=== PATIENT | female | born 1995 | race Caucasian/White ===

== ENCOUNTER 2022-02-11 05:03 | Inpatient (IN) ==
[2022-02-11] MEDS ORDERED: LACTATED RINGER'S 1,000 ML IV PRN (05:47)
[2022-02-11] MEDS ORDERED: OXYTOCIN 30 UNITS/500 ML BAG IV PRN (05:47)
--- NOTE | 2022-02-11 06:18 | Labor Progress Brief Note ---
Date of Service February 11, 2022 Subjective Patient arrived via ER with c/o ctx. Tearful when I enter room, unable to provide much history, waiting for IV placement team. Denies LOF, VB. Good FM. Assessment & Plan (1) Normal labor: Plan: Admit in labor, epidural as soon as able per patient request. A1GDM noted, Rh pos, GBS neg. Physical Exam Genitourinary: Per RN exam 5cm/75/-2 FHT Cat 1 [place] Q2m Results & Data ([facility]) Vital Signs (Past 12 Hours) Vital Signs Temp Pulse Resp BP 02/11/22 05:23 97 H 134/81 02/11/22 05:17 98.2 F 97 H 16 134/81 Coding Level of Care Code None Diagnoses Normal labor O80; Z37.9
[2022-02-11 06:33] LABS: Hematocrit (blood only) 38.6 % (37-47); Hemoglobin 12.7 g/dL (12.0-16.0); Mean Corpuscular Hemoglobin 27.8 pg (25-34); Mean Corpuscular Volume 84.5 fL (80-100); Mean Platelet Volume 10.3 fL (7.4-10.4); Platelet Count 262 K/uL (130-400); RDW Coefficient of Variation 13.8 % (11.5-14.5); RDW Standard Deviation 42.3 fL (36.4-46.3); Red Blood Count 4.57 M/uL (4.2-5.4); White Blood Count 11.26 K/uL (4.8-10.8)
[2022-02-11 06:37] LABS: Mean Corpuscular Hgb Conc 32.9 g/dL (32-36)
[2022-02-11] MEDS ORDERED: oxyCODONE/ACETAMINOPHEN 5mg/325mg TAB PO PRN (07:56)
[2022-02-11] MEDS ORDERED: BENZOCAINE 20% AER SPR 82.5 GM CAN EXT PRN (07:56)
[2022-02-11] MEDS ORDERED: ACETAMINOPHEN 325 MG TAB PO PRN (07:56)
[2022-02-11] MEDS ORDERED: DIPHTHERIA/TETANUS/PERTUSSIS 0.5 ML SYR/VIAL IM ONE (07:56)
[2022-02-11] MEDS ORDERED: HYDROCORTISONE ACETATE 25 MG SUPP PR PRN (07:56)
[2022-02-11] MEDS: IBUPROFEN 600 MG TAB PO PRN ×3 (09:04→21:27)
[2022-02-11] MEDS: PRENATAL VITAMIN 1 TAB PO SCH (11:22)
[2022-02-11] MEDS: DOCUSATE SODIUM 100 MG CAP PO SCH ×2 (11:22→21:27)
--- NOTE | 2022-02-11 19:38 | Delivery Summary ---
Vaginal Delivery Summary Date of Service February 11, 2022 Vaginal Delivery Summary Patient arrived in active labor she requested an epidural however she progressed to quickly progressed to fully dilated and delivered a baby in occiput anterior position. Mouth and then nares were suctioned fluid was clear gentle traction live vigorous female cord clamped cord blood obtained placenta removed with gentle traction IV Pitocin started there was no tearing estimated blood loss 150 mL sponge and instrument counts correct
[2022-02-12] MEDS: IBUPROFEN 600 MG TAB PO PRN ×2 (01:51→06:35)
--- NOTE | 2022-02-12 06:16 | Obstetrical Progress Note ---
Date of Service February 12, 2022 Assessment & Plan (1) Encounter for care and examination after delivery: Plan: Patient is a 27-year-old now G2, P2 female who delivered via spontaneous vaginal delivery at 38 weeks gestation, day 1 -Continue routine care, Discharge today 24 hours after delivery -O+, antibody negative, rubella immune, GBS negative -Encourage breast-feeding -Encouraged ambulation -Tylenol and ibuprofen as needed for pain control -Follow-up OB appointment in [address] Contreras Admission and Anticipated Discharge Date Admission Date: February 11, 2022 Supervising Physician Co-Signing Physician Notes Resident Physician Supervision Note: I was present with Dr. Bangura during the history and exam. I discussed the case with the resident and agree with the findings and plan as documented in the note. Any exceptions or clarifications are listed here: [None] Documented By: Damari Contreras MD, FACOG Subjective Patient is a 27-year-old now G2, P2 female who delivered via spontaneous vaginal delivery at 38 weeks gestation, day 1. Patient overall doing well. Pain control at a 4 out of 10. Reports ambulating well and voiding. Able to tolerate eating and drinking. Denies chest pain, shortness of breath, nausea, vomiting, calf pain, and headaches. Breast-feeding without difficulty. Patient would like to go home if able today. Otherwise no complaints today. Review of Systems Review of Systems: All systems reviewed & are unremarkable except as noted in HPI & below Physical Exam Constitutional: WD/WN, vitals as above Eyes: + anicteric sclerae Neck: trachea midline, no thyromegaly Respiratory: normal respiratory effort, lungs clear to auscultation Cardiovascular: RRR, no murmur, no edema Gastrointestinal (Abdomen): normal bowel sounds, soft, nontender, no hepatosplenomegaly Musculoskeletal: Head/Neck/Chest: normocephalic and head atraumatic Skin: no rashes, warm and dry Neurologic: moves all extremities Psychiatric: A+Ox3, euthymic affect Genitourinary: Uterus palpated 2 cm below the umbilicus, firm. Results & Data ([facility]) Vital Signs (Past 12 Hours) Vital Signs Temp Pulse Resp BP Pulse Ox 02/12/22 04:15 36.6 C 73 16 113/65 96 02/11/22 23:45 36.5 C 69 16 113/66 100 02/11/22 19:20 36.7 C 84 18 133/79 98
[2022-02-12] MEDS: PRENATAL VITAMIN 1 TAB PO SCH (07:53)
[2022-02-12] MEDS: DOCUSATE SODIUM 100 MG CAP PO SCH (07:53)
[2022-02-12 09:27] LABS: Hematocrit (blood only) 34.9 % (37-47); Hemoglobin 11.8 g/dL (12.0-16.0); Mean Corpuscular Hemoglobin 28.9 pg (25-34); Mean Corpuscular Hgb Conc 33.8 g/dL (32-36); Mean Corpuscular Volume 85.3 fL (80-100); Mean Platelet Volume 10.4 fL (7.4-10.4); Platelet Count 256 K/uL (130-400); RDW Standard Deviation 43.3 fL (36.4-46.3); Red Blood Count 4.09 M/uL (4.2-5.4); White Blood Count 12.69 K/uL (4.8-10.8)
== END 2022-02-12 13:10 | disposition home or self-care (01) | DRG 807 ==
LOC: OPB 05:03 → 4S1 05:07 → 4E2 09:50